=== PATIENT | female | born 1980 | race Caucasian/White ===

== ENCOUNTER → 2016-10-09 | Outpatient (REF) ==
[~2016-10-09] MED LIST: BCP TD; FLINTSTONES1 CTB PO; MOTRIN 600600 MG/TAB PO; NORCO 325 MG-51 TAB PO; NORCO 325 MG-7.1 TAB PO; PERCOCET 325 MG1 TA2 PO; PHENERGAN 25 TA25 MG PO; PHENERGAN25 MG RC; SLOW FE45 MG PO; TYLENOL #2 3001 TAB PO; [UNRECOGNIZED DRUG - OTHER]
== END ==
LOC: WSOH 12:15
DX: Z02.89 Encounter for other administrative examinations (principal)

== ENCOUNTER → 2016-11-16 | Outpatient (REF) | LOC: WSOH 09:01 | DX: Z02.89 Encounter for other administrative examinations (principal) ==

== ENCOUNTER 2018-03-03 13:17 | Day surgery (SDC) | payer OTHER ==
[~2018-03-03] VITALS: Ht 167.6 cm; Wt 84.3 kg
[2018-03-03] VITALS (7 sets, daily range): BP systolic 124–142; BP diastolic 84–94; PULSE 65–92; TEMP 97.6–98.1
== END 2018-03-03 21:45 | disposition home or self-care (01) ==
LOC: SDCO 13:17 → JCC 20:43 → SDCO 21:45
DX: M72.2 Plantar fascial fibromatosis (principal); S96.812A Strain of other specified muscles and tendons at ankle and foot level, left foot, initial encounter; D64.9 Anemia, unspecified; E78.00 Pure hypercholesterolemia, unspecified; E88.81 Metabolic syndrome and other insulin resistance; I10 Essential (primary) hypertension; F17.210 Nicotine dependence, cigarettes, uncomplicated; Z82.61 Family history of arthritis; Z82.49 Family history of ischemic heart disease and other diseases of the circulatory system; Z82.62 Family history of osteoporosis
CPT/HCPCS: J1100; J1170; J2250; J2405; J2704; J3010; J7120

== ENCOUNTER → 2021-03-31 | Outpatient (CLI) | payer OTHER ==
[2021-03-31 08:53] LABS: BASO # 0.1 K/mm3 (0.0-0.2); EOS # 0.5 K/mm3 (0.0-0.7); EOS % 6.7 % (0.0-4.0); GRAN # 3.9 K/mm3 (1.4-6.5); GRAN % 47.7 % (42.2-75.2); HEMATOCRIT 40.9 % (37.0-47.0); HEMOGLOBIN 13.4 g/dl (12.5-16.0); LYMPH % 37.4 % (20.0-51.0); MEAN CELL VOLUME 93 fl (80.0-100.0); MEAN CORPUSCULAR HEMOGLOBIN 30 pg (27-31); MEAN CORPUSCULAR HGB CONC 33 g/dl (33.0-37.0); MEAN PLATELET VOLUME 12.2 fl (7.4-10.4); MONO # 0.6 K/mm3 (0.1-0.6); MONO % 7.1 % (1.7-9.3); PLATELET COUNT 203 K/mm3 (130-400); RED BLOOD COUNT 4.41 M/mm3 (4.10-5.30); REDCELL DISTRIBUTION WIDTH-CV 11.9 % (11.5-14.5)
[2021-03-31 09:17] LABS: ALBUMIN 4.2 gm/dL (3.5-5.0); BILIRUBIN,TOTAL 0.5 mg/dL (0.2-1.2); CALCIUM 9.1 mg/dL (8.4-10.2); CHOLESTEROL RISK RATIO 5.5; CREATININE, serum 0.72 mg/dL (0.57-1.11); POTASSIUM 4.2 mmol/L (3.5-4.5); TOTAL PROTEIN 7.1 gm/dL (6.2-8.1)
[2021-03-31 09:37] LABS: THYROID STIMULATING HORMONE 1.167 uIU/mL (0.350-4.940)
== END ==
LOC: COL.LAB 08:27
PROVIDERS: Internal Medicine
DX: Z00.00 Encounter for general adult medical examination without abnormal findings (principal); Z13.220 Encounter for screening for lipoid disorders; Z13.29 Encounter for screening for other suspected endocrine disorder

== ENCOUNTER → 2023-04-26 | Outpatient (CLI) | payer BC | LOC: MC.RAD 09:54 | DX: N63.21 Unspecified lump in the left breast, upper outer quadrant (principal) ==